=== PATIENT | male | born 1990 | race African-American/Black ===

== ENCOUNTER 2018-10-31 22:51 | Emergency (ER) | payer SELFPAY ==
[~2018-10-31] VITALS: Ht 172.7 cm; Wt 112.0 kg
[2018-11-01 03:18] VITALS: BP 132/73
[2018-11-01] MEDS ORDERED: IBUPROFEN 800 MG TAB PO ONE (04:30)
== END 2018-11-01 04:54 | disposition home or self-care (01) ==
LOC: ER 22:54
DX: M79.671 Pain in right foot (principal); F12.10 Cannabis abuse, uncomplicated; J45.909 Unspecified asthma, uncomplicated
CPT/HCPCS: 73630